=== PATIENT | male | born 1935 | race Hispanic/Latino ===

== ENCOUNTER 2019-01-21 07:53 | Day surgery (SDC) | payer MEDICARE ==
[2019-01-18 12:20] VITALS: BP 95/62
[2019-01-18 12:39] LABS: BASOPHILS % (AUTO) 0.5 % (0.0-5.0); EOSINOPHILS % (AUTO) 1.6 % (0.0-8.0); HEMATOCRIT 38.4 % (42-54); LYMPHOCYTES % (AUTO) 24.9 % (21.0-51.0); MEAN CORPUSCULAR HEMOGLOBIN 31.5 pg (27.0-33.0); MEAN CORPUSCULAR HGB CONC 33.1 g/dL (32.0-36.0); MEAN CORPUSCULAR VOLUME 95.2 fL (79-99); MONOCYTES % (AUTO) 6.8 % (3.0-13.0); NEUTROPHILS % (AUTO) 66.2 % (40.0-77.0); PLATELET COUNT (AUTO) 148 K/uL (130-400); RED BLOOD CELL COUNT(AUTO) 4.04 MIL/uL (4.50-6.20); RED CELL DISTRIBUTION WIDTH 14.3 % (11.0-15.5); WHITE BLOOD COUNT (AUTO) 6.4 K/uL (4.8-10.8)
[2019-01-18 12:53] LABS: INR 0.96 (0.85-1.15); PARTIAL THROMBOPLASTIN TIME 28.5 SEC (26.3-35.5); PROTHROMBIN TIME 10.1 SEC (9.6-11.6)
[2019-01-18 12:55] LABS: BILIRUBIN,URINE Negative (NEGATIVE); COLOR,URINE Yellow (YELLOW); GLUCOSE, URINE (UA) Negative (NEGATIVE); KETONES,URINE Negative (NEGATIVE); LEUKOCYTE ESTERASE ,URINE Trace (NEGATIVE); NITRATE,URINE Negative (NEGATIVE); OCCULT BLOOD,URINE Negative (NEGATIVE); PROTEIN,URINE Negative (NEGATIVE)
[2019-01-18 12:58] LABS: CREATININE 1.2 mg/dL (0.5-1.5); POTASSIUM 4.4 mmol/L (3.5-5.1)
[2019-01-18 12:59] LABS: APPEARANCE,URINE CLEAR (CLEAR)
[2019-01-18 13:04] LABS: BACTERIA,URINE Rare /HPF (None Seen); HYALINE CASTS, URINE 0-1 /LPF (0-1 /LPF); MUCUS,URINE Rare LPF (None Seen); RBC,URINE None Seen /HPF (0-1); SQUAMOUS EPITHELIAL CELL,UR Rare /HPF (0-2); WBC,URINE 0-1 /HPF (0-1)
--- NOTE | 2019-01-18 13:20 | NUR ---
ABNORMAL EKG SHOWED DR. DOAN PT'S EKG RESULT. NO FURTHER ORDERS GIVEN. OKAY TO PROCEED.
--- NOTE | 2019-01-20 12:44 | NUR ---
NOTE REPORTED ABNORMAL UA , PER DUNC[place] DR FINGERS NURSE NO FURTHER ORDERS
[2019-01-21] VITALS (27 sets, daily range): BP systolic 144–190; BP diastolic 83–112
[~2019-01-21] VITALS: Ht 165.1 cm; Wt 72.0 kg
[~2019-01-21 07:53] MED LIST: AEC81 PO; CEFTRIAXONE SODIUM 1 GM IVP SCH; INHALER IH
[2019-01-21] MEDS ORDERED: LACTATED RINGERS 1000ML 1,000 ML IV ONE (08:47)
[2019-01-21] MEDS ORDERED: HYDRALAZINE HCL 20 MG/ML VIAL ONE (08:48)
[2019-01-21] MEDS ORDERED: HYDRALAZINE HCL 20 MG/ML VIAL IV SCH (08:49)
[2019-01-21] MEDS ORDERED: OMEP40CA37 PO (09:13)
[2019-01-21] MEDS ORDERED: TIOT4MIS5 IH (09:13)
[2019-01-21] MEDS ORDERED: BUDE10.2 IH (09:13)
[2019-01-21] MEDS ORDERED: [UNRECOGNIZED DRUG - OTHER] IH (09:13)
[2019-01-21] MEDS ORDERED: DEXAMETHASONE SOD PHOSPHATE 10MG/ML 1ML VIAL ONE (09:42)
[2019-01-21] MEDS ORDERED: LIDOCAINE PF 2% 5ML ABBOJECT ONE ×2 (09:42→09:43)
[2019-01-21] MEDS ORDERED: SUCCINYLCHOLINE 200MG/10ML SYR ONE (09:42)
[2019-01-21] MEDS ORDERED: ROCURONIUM 10MG/1ML SYR 10 MG/ML ML ONE (09:43)
[2019-01-21] MEDS ORDERED: GLYCOPYRROLATE 1 MG/5 ML SYRINGE ONE (09:43)
[2019-01-21] MEDS ORDERED: PROPOFOL 10 MG/ML 20ML VIAL IV ONE (09:43)
[2019-01-21] MEDS ORDERED: FENTANYL CITRATE PF 50 MCG/1 ML 2ML VIAL ONE (09:43)
[2019-01-21] MEDS ORDERED: NEOSTIGMINE 5MG/5ML SYR IV ONE (09:43)
[2019-01-21] MEDS ORDERED: BOTULINUM TOXIN TYPE A 100 UNITS/VIAL INJ SCH (09:45)
--- NOTE | 2019-01-21 10:50 | NUR ---
DR DOAN NOTIFIED OF ELEVATED BP 172/99, CURRENTLY 166/99. WAS 190 SBP IN HOLDING AND GIVEN HYDRALAZINE. NO NEW ORDERS GIVEN, WILL CONTINUE TO MONITOR Addendum: 01/21/19 at 1052 by ROBERT MACDONALD RN RN Amended: Links added.
--- NOTE | 2019-01-21 11:45 | NUR ---
ASSESSMENT RECEIVED PT FROM JEWELL RESTREPO. PT AAOX3. NO BLEEDING NOTED TO PENIS. ELEVATED BP. SPOKE TO JEWELL NORTON. STATES SHE HAD INFORMED DR. DOAN OF ELEVATED BP IN PACU. STATES SHE RECEIVED ORDER TO GIVE HYDRALAZINE 5MG IV IN PACU AND WAS GIVEN.
--- NOTE | 2019-01-21 11:55 | NUR ---
BP READJUSTED BP CUFF. SWITCHED ARMS. BP STILL ELEVATED. PT STATES " I HAVENT TAKEN MY BP MEDS FOR 4 DAYS". PT DENIES ANY HEADACHES, DISCOMFORT. DR. DOAN NOTIFIED OF ELEVATED BP. ORDERS RECEIVED TO GIVE LABETALOL OF 5 MG IV AND TO HOLD MED IF HEART RATE BELOW 50.
[2019-01-21] MEDS ORDERED: LABETALOL 20 MG/4 ML DISP.SYRIN IV ONE (12:00)
--- NOTE | 2019-01-21 12:20 | NUR ---
DR. FRANKI DOAN HERE TO EVALUATE PT. BP 187/91. HR 77. DENIES ANY COMPLAINTS. ORDERS RECEIVED TO GIVE 5MG IV OF LABETALOL IN TO OBTAIN SYSTOLIC BP IN 170'S AND CALL PTS PCP FOR FURTHER RECOMMENDATION.
--- NOTE | 2019-01-21 12:45 | NUR ---
PCP CALLED DR. GOMEZ'S OFFICE AND SPOKE TO Bhakti THOMPSON MA IN REGARDS TO PTS SITUATION WITH BP. STATES DR. GOMEZ WILL SEE AND EVALUATE PT TODAY FOR TREATMENT.
--- NOTE | 2019-01-21 12:50 | NUR ---
DISCHARGE ORAL AND WRITTEN DISCHARGE INSTRUCTIONS GIVEN TO PT AND PTS IN REGARDS TO GOING STRAIGHT TO DR. GOMEZ'S OFFICE AFTER DISCHARGE FOR EVALUATION OF BP. BOTH VERBALIZED UNDERSTANDING. PRESCRIPTION GIVEN TO PTS .
--- NOTE | 2019-01-21 14:50 | NUR ---
DR. LC PLATT MADE AWARE OF PTS ELEVATED BP AND PCP EVALUATION PT AFTER DISCHARGE. NO ORDERS RECEIVED.
== END 2019-01-21 12:45 | disposition home or self-care (01) ==
LOC: DAH 07:53
PROVIDERS: ATTEND Urology
DX: N39.41 Urge incontinence (principal); R35.0 Frequency of micturition; R35.1 Nocturia; I10 Essential (primary) hypertension; N40.1 Benign prostatic hyperplasia with lower urinary tract symptoms; J45.909 Unspecified asthma, uncomplicated; Z98.890 Other specified postprocedural states; Z79.899 Other long term (current) drug therapy; Z79.01 Long term (current) use of anticoagulants
CPT/HCPCS: 36415; 52287; 71045; 80048; 81001; 85025; 85610; 85730; 87088; 93005; 96374; A4215; A4218; A4358; A4600; J0330; J0360 ×2; J0585; J0696; J1100; J2001 ×2; J2704; J2710; J3010; J3490; J7120 ×2

== ENCOUNTER 2021-04-12 07:22 | Day surgery (SDC) | payer MEDICARE ==
[2021-04-06 14:26] LABS: BASOPHILS % (AUTO) 0.2 % (0.0-5.0); EOSINOPHILS % (AUTO) 5.3 % (0.0-8.0); HEMATOCRIT 35.6 % (42-54); LYMPHOCYTES % (AUTO) 23.6 % (21.0-51.0); MEAN CORPUSCULAR HEMOGLOBIN 30.7 pg (27.0-33.0); MONOCYTES % (AUTO) 9.2 % (3.0-13.0); NEUTROPHILS % (AUTO) 61.4 % (40.0-77.0); PLATELET COUNT (AUTO) 176 K/uL (130-400); RED BLOOD CELL COUNT(AUTO) 3.71 MIL/uL (4.50-6.20); RED CELL DISTRIBUTION WIDTH 14.9 % (11.0-15.5); WHITE BLOOD COUNT (AUTO) 6.3 K/uL (4.8-10.8)
[2021-04-06 14:32] LABS: CREATININE 1.7 mg/dL (0.5-1.5); POTASSIUM 4.5 mmol/L (3.5-5.1)
[2021-04-06 14:51] LABS: APPEARANCE,URINE Clear (CLEAR); BILIRUBIN,URINE Negative (NEGATIVE); COLOR,URINE Yellow (YELLOW); GLUCOSE, URINE (UA) Negative (NEGATIVE); KETONES,URINE Negative (NEGATIVE); LEUKOCYTE ESTERASE ,URINE Negative (NEGATIVE); NITRATE,URINE Negative (NEGATIVE); OCCULT BLOOD,URINE Negative (NEGATIVE); PH,URINE 6.5 (5.0-8.0); PROTEIN,URINE Negative (NEGATIVE); UROBILINOGEN,URINE 0.2 mg/dL (0.2-1.0)
[2021-04-11 11:56] VITALS: BP 117/52
[~2021-04-12] VITALS: Ht 167.6 cm; Wt 66.7 kg
[2021-04-12] VITALS (17 sets, daily range): BP systolic 123–152; BP diastolic 54–75
[~2021-04-12 07:22] MED LIST changes: -AEC81 PO; -CEFTRIAXONE SODIUM 1 GM IVP SCH; +FERS325 PO; -INHALER IH; +LEVO500T89 PO; +METOPROLOL TARTRATE PO; +MONT10TA32 PO; +TAMS-1 PO
[2021-04-12] MEDS ORDERED: LACTATED RINGERS 1000ML 1,000 ML IV ONE (07:52)
[2021-04-12] MEDS: CEFTRIAXONE SODIUM 1 GM IVP ONE ×2 (08:33→10:00)
[2021-04-12] MEDS: BOTULINUM TOXIN TYPE A 100 UNITS/VIAL INJ PRN ×2 (08:33→10:20)
[2021-04-12] MEDS ORDERED: FURO40TA5 PO (08:44)
[2021-04-12] MEDS ORDERED: SUCCINYLCHOLINE 200MG/10ML SYR ONE ×2 (09:48→09:50)
[2021-04-12] MEDS ORDERED: LIDOCAINE PF 2% 5ML ABBOJECT ONE ×2 (09:48→09:49)
[2021-04-12] MEDS ORDERED: DEXAMETHASONE SOD PHOSPHATE 10MG/ML 1ML VIAL ONE (09:48)
[2021-04-12] MEDS ORDERED: PROPOFOL 10 MG/ML 20ML VIAL IV ONE ×2 (09:49→10:19)
[2021-04-12] MEDS ORDERED: GLYCOPYRROLATE 1 MG/5 ML SYRINGE ONE (09:49)
[2021-04-12] MEDS ORDERED: NEOSTIGMINE 5MG/5ML SYR IV ONE (09:49)
[2021-04-12] MEDS ORDERED: ONDANSETRON HCL 4 MG/2 ML VIAL ONE (09:49)
[2021-04-12] MEDS ORDERED: FENTANYL CITRATE PF 50 MCG/1 ML 2ML VIAL ONE (09:49)
[2021-04-12] MEDS ORDERED: ROCURONIUM 10MG/1ML SYR 10 MG/ML ML ONE (09:49)
== END 2021-04-12 12:00 | disposition home or self-care (01) ==
LOC: DAH 07:22
PROVIDERS: ATTEND Urology
DX: R35.0 Frequency of micturition (principal); R35.1 Nocturia; I10 Essential (primary) hypertension; Z20.822 Contact with and (suspected) exposure to COVID-19; Z79.899 Other long term (current) drug therapy
CPT/HCPCS: 36415; 52287; 71045; 80048; 81003; 84153; 85025; 87088; 93005; A4215; A4216; A4221; A4222; A4223 ×2; A4358; A4600; A4663; A6260; C1769; C9803; J0330 ×2; J0585; J0696; J1100; J2001 ×2; J2405; J2704 ×2; J2710; J3010; J3490; J7120 ×2; U0003